=== PATIENT | male | born 1945 | race Caucasian/White ===

== ENCOUNTER 2018-10-12 14:07 | Inpatient (IN) | payer MEDICARE, MEDICAID ==
[~2018-10-12] VITALS: Ht 182.9 cm; Wt 58.1 kg
[2018-10-12] MEDS ORDERED: ONDANSETRON HCL/PF 4 MG/2 ML VIAL IVP ONE (14:30)
[2018-10-12] MEDS ORDERED: MORPHINE SULFATE INJ 2 MG/ML DISP.SYRIN IM ONE (14:30)
[2018-10-12] MEDS ORDERED: IV NS 0.9% 1,000 ML BAG IV ONE (14:30)
[2018-10-12 14:45] LABS: BASOPHILS # (AUTO) 0.1 /CMM (0.0-0.2); BASOPHILS % (AUTO) 0.7 % (0.0-2.0); HEMATOCRIT 22 % (39-51); HEMOGLOBIN 7.3 g/dL (13.5-17.5); LYMPHOCYTES # (AUTO) 0.2 /CMM (0.8-4.8); LYMPHOCYTES % (AUTO) 2.2 % (20.0-44.0); MEAN CORPUSCULAR HGB CONC 33 g/dl (31.0-36.0); MEAN CORPUSCULAR VOLUME 99 fL (80-96); MONOCYTES # (AUTO) 0.8 /CMM (0.1-1.30); MONOCYTES % (AUTO) 8.3 % (2.0-12.0); NEUTROPHILS # (AUTO) 8.2 /CMM (1.8-8.9); NEUTROPHILS % (AUTO) 88.8 % (43.0-81.0); PLATELET COUNT (AUTO) 196 /CMM (150-450); RED BLOOD CELL COUNT(AUTO) 2.22 MIL/uL (4.5-6.0); WHITE BLOOD COUNT (AUTO) 9.2 K/uL (4.3-11.0)
[2018-10-12] MEDS ORDERED: ONDANSETRON HCL/PF 4 MG/2 ML VIAL ONE (14:47)
[2018-10-12] MEDS ORDERED: MORPHINE SULFATE INJ 4 MG/ML DISP.SYRIN ONE (14:47)
[2018-10-12 14:54] LABS: CALCIUM, SERUM 8.1 mg/dL (8.5-10.1); CARBON DIOXIDE 22 mmol/L (21-32); CHLORIDE 106 mmol/L (98-107); CREATININE 1.4 mg/dL (0.6-1.3); GLUCOSE 78 mg/dL (74-106); POTASSIUM 4.5 mmol/L (3.5-5.1); SODIUM SERUM 137 mmol/L (136-145); UREA NITROGEN, BLOOD 28 mg/dL (7-18)
[2018-10-12 15:00] LABS: ALANINE AMINOTRANSFERASE 22 U/L (12-78); ALBUMIN 2.7 g/dL (3.4-5.0); ALKALINE PHOSPHATASE 65 U/L (46-116); ASPARTATE AMINOTRANSFERASE 48 U/L (15-37); BILIRUBIN,DIRECT 0.3 mg/dL (0.0-0.2); BILIRUBIN,TOTAL 0.9 mg/dL (0.2-1.0); TOTAL PROTEIN, SERUM 5.7 g/dL (6.4-8.2)
--- NOTE | 2018-10-12 15:27 | NUR ---
CALLED NURSING SUP. FOR TELE BED
--- NOTE | 2018-10-12 15:42 | NUR ---
DEVAN PAGED, BALE COVERER
[2018-10-12 15:48] LABS: APPEARANCE,URINE Clear (CLEAR); BILIRUBIN,URINE Negative (NEGATIVE); BLOOD, URINE Large Ery/uL (NEGATIVE); COLOR,URINE Yellow (YELLOW); KETONES,URINE 15 (NEGATIVE); LEUKOCYTE ESTERASE ,URINE Negative (NEGATIVE); NITRITE, URINE Negative (NEGATIVE); PROTEIN,URINE 30 mg/dl (NEGATIVE); UGLUCOSE Negative (NEGATIVE); UROBILINOGEN,URINE 0.2 EU/dL (0.2)
[2018-10-12] MEDS ORDERED: LENA5CAP PO (15:51)
[2018-10-12] MEDS ORDERED: AMLO2.5T4 PO (15:51)
[2018-10-12] MEDS ORDERED: DAPS25TA2 PO (15:51)
[2018-10-12] MEDS ORDERED: ASPI-1169 PO (15:51)
[2018-10-12] MEDS ORDERED: DEXA4TAB PO (15:51)
[2018-10-12 15:55] LABS: BACTERIA,URINE Rare /HPF (None Seen); RBC,URINE 21-50 /HPF (0-2); SQUAMOUS EPITHELIAL CELL,UR None Seen /HPF (None Seen); WBC,URINE NONE SEEN /HPF (0-3)
[2018-10-12] MEDS ORDERED: ALBUTEROL FS 2.5 MG/3 ML VIAL.NEB NEB ONE (16:30)
[2018-10-12] MEDS ORDERED: ACETAMINOPHEN 325 MG TABLET PO PRN (16:30)
[2018-10-12] MEDS ORDERED: IV NS 0.9% 1,000 ML IV SCH (16:30)
[2018-10-12] MEDS ORDERED: Z GUARD REMEDY 2 OZ OINT TP PRN (16:30)
[2018-10-12] MEDS ORDERED: MAGNESIUM HYDROXIDE 30 ML UDC PO PRN (16:30)
[2018-10-12] MEDS ORDERED: DEXAMETHASONE 4 MG TABLET PO SCH (16:30)
[2018-10-12] MEDS ORDERED: ONDANSETRON HCL/PF 4 MG/2 ML VIAL IVP PRN (16:30)
[2018-10-12] MEDS ORDERED: ZOLPIDEM TARTRATE 5 MG TABLET PO PRN (16:30)
[2018-10-12] MEDS ORDERED: MAG HYDROX/AL HYDROX/SIMETH 30 ML UDC PO PRN (16:30)
[2018-10-12] MEDS ORDERED: FUROSEMIDE 40 MG/4 ML VIAL ONE (16:49)
[2018-10-12 16:57] LABS: ABG BASE EXCESS -4.8 mmol/L; ABG OXYGEN SATURATION 81.8 % (92.0-98.5); ABG PCO2 32.3 mmHg (35.0-45.0); ABG PH 7.398 (7.350-7.450); AaDO2 196.1 mmHg; COHb 1.6 % (0.5-1.5); MetHb 0.1 % (0.0-1.5); O2Hb 80.4 % (94.0-97.0); SITE, ABG Right Radial; VENT MODE, BG SM 6L
[2018-10-12 17:00] VITALS: BP 155/83
[2018-10-12] MEDS ORDERED: FUROSEMIDE 40 MG/4 ML VIAL IV SCH (17:00)
--- NOTE | 2018-10-12 17:00 | NUR ---
RECEIVED PT AWAKE A/O X2-3 , ABLE TO PROVIDE HISTORY. PATIENTS SATURATION ON ROOM AIR 88 %. PATIENT ADM TO TELE , SINUS TACH 126, TEMPERATURE 102.1. GATE UNSTABLE, BED ALARM ACTIVATED. PT HAS IV ON LAC #20, FLUSHING WELL. SKIN INTACT , EXCEPT FEET DRYNESS AND DISCOLORATION ON THE KNEES, PICTURES ARE TAKEN AND PLACED IN THE CHART. SAFETY PRECAUTIONS IN PLACE, PATIENT ORIENTED TO ROOM AND UNIT. ADMITTING MD NOTIFIED. WILL F/U WITH ORDERS.
--- NOTE | 2018-10-12 17:10 | NUR ---
PATIENT ON O2 VIA SIMPLE MASK , SATURATION 93-94%
--- NOTE | 2018-10-12 17:15 | NUR ---
REPORT GIVEN TO ZOHRA MAO FOR NALINI, PT WILL BE TRANSPORTED TO 1ST FLOOR/TELE/KORIN VIA ACLS PROTOCOL
--- NOTE | 2018-10-12 19:30 | NUR ---
PATIENT IN BED WITH EYES CLOSED; EASILY AROUSABLE. AO X 3, ABLE TO MAKE NEEDS KNOWN. NO ACUTE DISTRESS NOTED. DENIES ANY PAIN AT THIS TIME. TELE READING SR/ST. IV SITE PATENT, INTACT; FLUSHED. SAFETY REMINDERS GIVEN. ON LOW BED WITH BILATERAL UPPER SIDE RAILS UP. CALL HITCHCOCK WITHIN EASY REACH. WILL CONTINUE TO MONITOR.
[2018-10-12 20:00] VITALS: BP 141/67
--- NOTE | 2018-10-12 21:00 | NUR ---
TEMP 101.8 RELAYED TO [facility]; WITH ORDER TO RE-CHECK IN 4 HOURS, DON'T GIVE TYLENOL AT THIS TIME. WILL CONTINUE TO MONITOR PATIENT. Addendum: 10/13/18 at 0733 by BIBI LOZANO RN COOLING MEASURES APPLIED.
[2018-10-13] VITALS (7 sets, daily range): BP systolic 100–136; BP diastolic 56–88
--- NOTE | 2018-10-13 04:00 | NUR ---
TROP 0.413 RELAYED TO [facility]; NO NEW ORDERS AT THIS TIME. PATIENT WITH NO C/O PAIN. TELE READING ST. AFEBRILE AT THIS TIME. WILL CONTINUE TO MONITOR.
--- NOTE | 2018-10-13 06:30 | NUR ---
PATIENT ASLEEP, EASILY AROUSABLE. RESPIRATIONS EVEN. NO SIGNS OF PAIN NOTED. AFEBRILE. NEEDS ATTENDED. KEPT CLEAN, DRY, AND COMFORTABLE. SAFETY PRECAUTIONS AND COMFORT MEASURES IN PLACE. WILL GIVE REPORT TO DAY SHIFT FOR CONTINUITY OF CARE.
--- NOTE | 2018-10-13 07:10 | NUR ---
MICROSOFT INFRASTRUCTURE CONSULTANT INITIAL NOTES PATIENT IN BED WITH EYES CLOSED; EASILY AROUSABLE. AOX3, ABLE TO MAKE NEEDS KNOWN. TELE READING ST WITH HR 140. ON OXYGEN 6L, SATURATION 85. RT AT BEDSIDE. IV SITE PATENT, INTACT; FLUSHED. SAFETY REMINDERS GIVEN. ON LOW BED WITH BILATERAL UPPER SIDE RAILS UP. CALL HITCHCOCK WITHIN EASY REACH. WILL CONTINUE TO MONITOR.
[2018-10-13 07:16] LABS: BASOPHILS % (AUTO) 0.5 % (0.0-2.0); HEMATOCRIT 24 % (39-51); HEMOGLOBIN 7.9 g/dL (13.5-17.5); LYMPHOCYTES # (AUTO) 0.2 /CMM (0.8-4.8); LYMPHOCYTES % (AUTO) 3.3 % (20.0-44.0); MEAN CORPUSCULAR HGB CONC 33 g/dl (31.0-36.0); MEAN CORPUSCULAR VOLUME 99 fL (80-96); MONOCYTES # (AUTO) 0.3 /CMM (0.1-1.30); MONOCYTES % (AUTO) 4.1 % (2.0-12.0); NEUTROPHILS # (AUTO) 5.7 /CMM (1.8-8.9); NEUTROPHILS % (AUTO) 92.1 % (43.0-81.0); PLATELET COUNT (AUTO) 179 /CMM (150-450); RED BLOOD CELL COUNT(AUTO) 2.44 MIL/uL (4.5-6.0); WHITE BLOOD COUNT (AUTO) 6.2 K/uL (4.3-11.0)
[2018-10-13 07:29] LABS: CALCIUM, SERUM 7.8 mg/dL (8.5-10.1); CARBON DIOXIDE 22 mmol/L (21-32); CHLORIDE 107 mmol/L (98-107); CREATININE 1.7 mg/dL (0.6-1.3); GLUCOSE 70 mg/dL (74-106); PHOSPHORUS 3.6 mg/dL (2.5-4.9); POTASSIUM 4.3 mmol/L (3.5-5.1); SODIUM SERUM 144 mmol/L (136-145); UREA NITROGEN, BLOOD 35 mg/dL (7-18)
[2018-10-13 07:31] LABS: CHOLESTEROL 109 mg/dL (<200); HDL CHOLESTEROL 68 mg/dL (40-60); LDL 37 mg/dL (0-99); TRIGLYCERIDES 97 mg/dL (30-150)
--- NOTE | 2018-10-13 07:45 | NUR ---
PCB DESIGNER NOTES RT AT BEDSIDE AND PLACED NONREBREATHER MASK 100, PATIENT'S SATURATION NOW 94%. HEART RATE SINUS TACHY WITH HR 145. TEMP 101, RR 20, BP 128/56. WILL NOTIFY . Addendum: 10/13/18 at 0815 by BRIGITTE SOFIA RN COOLING MEASURES GIVEN. WILL CONTINUE TO MONITOR.
[2018-10-13 07:46] LABS: MAGNESIUM 1.2 mg/dL (1.8-2.4)
[2018-10-13] MEDS: AMLODIPINE BESYLATE 2.5 MG TABLET PO SCH (09:41)
[2018-10-13] MEDS: ASPIRIN 81 MG TAB.CHEW PO SCH (09:41)
--- NOTE | 2018-10-13 10:00 | NUR ---
TOOL DISTRIBUTOR NOTES PATIENT TEMP 102.4, GAVE PATIENT A COLD BATH WITH JANE AMAYA, COOLING BLANKET IN PLACE. WILL CONTINUE TO MONITOR PT.
--- NOTE | 2018-10-13 10:43 | NUR ---
TEL Nurse , left message ,< answering service >to re; temp of 102.6 axillary tylenol 650mg po given and waiting for retruning call back
[2018-10-13] MEDS: Magnesium 1GM/D5W 100ML PREMIX 100 ML IV SCH ×4 (12:46→15:53)
[2018-10-13] MEDS ORDERED: DEXAMETHASONE 4 MG TABLET PO SCH (13:00)
[2018-10-13] MEDS ORDERED: FEE PK DOSING 1 MIN EA MC ONE (13:20)
[2018-10-13] MEDS ORDERED: IV NS 0.9% 1,000 ML BAG IV PRN (13:30)
[2018-10-13] MEDS: VANCOMYCIN 0.75 GM in IV D5W 250 ML IV SCH (14:35)
[2018-10-13] MEDS ORDERED: PIPERACILLIN /TAZOBACTAM 3.375 G in IV D5W 50 ML IV ONE (15:00)
[2018-10-13] MEDS: IV NS 0.9% 1,000 ML IV PRN (15:02)
--- NOTE | 2018-10-13 19:15 | NUR ---
DECORATOR STORE NOTE PATIENT PRESENTS AOX3, RESTING WITH HOB ELEVATED ON 10L MASK O2 SAT 97%, NO S/SX OF CARDIAC OR RESPIRATORY DISTRESS NOTED, ON TELE ST, SKIN KEPT CLEAN AND DRY, RAC #20G IV PATENT FLUSHING WELL WITH NS @ 75 ML/HR, SAFETY MAINTAINED AT ALL TIMES, BED IN LOW LOCKED POSITION, CALL LIGHT WITHIN REACH WILL CONTINUE TO MONITOR FOR ANY CHANGES.
--- NOTE | 2018-10-13 19:20 | NUR ---
RUNNER MAN CLOSING NOTES PATIENT SLEEPING IN BED, BUT EASY TO AROUSE. AOX3, ABLE TO MAKE NEEDS KNOWN. TELE READING ST WITH HR 90S. ON OXYGEN 10L, VIA MASK. OXYGEN SATURATION 96%. NO SOB NOTED. IV SITE PATENT, INTACT, NS RUNNING AT 75ML/HR. SAFETY REMINDERS GIVEN. ON LOW BED WITH BILATERAL UPPER SIDE RAILS UP. CALL HITCHCOCK WITHIN EASY REACH. ALL MD ORDERS ATTENDED. ALL NEEDS MET. ENDORSED TO FRENCH BINDER NURSE FOR NALINI.
--- NOTE | 2018-10-13 22:10 | NUR ---
EVENT ATTENDANT NOTE RN DECREASED O2 TO 6L VIA MASK PT O2 SAT 98% DENIES ANY RESPIRATORY DISTRESS, WILL CONTINUE TO MONITOR.
[2018-10-13] MEDS: PIPERACILLIN /TAZOBACTAM 3.375 G in IV D5W 100 ML IV SCH (23:02)
[2018-10-14] VITALS: BP 127/76
--- NOTE | 2018-10-14 02:57 | NUR ---
ADOBE MAKER NOTE RN DECREASED O2 TO 4L VIA MASK PT O2 SAT 98% DENIES ANY RESPIRATORY DISTRESS, WILL CONTINUE TO MONITOR.
[2018-10-14 04:00] VITALS: BP 116/71
[2018-10-14 05:39] LABS: BASOPHILS % (AUTO) 0.1 % (0.0-2.0); EOSINOPHILS % (AUTO) 0.1 % (0.0-6.0); HEMATOCRIT 25 % (39-51); HEMOGLOBIN 8.1 g/dL (13.5-17.5); LYMPHOCYTES # (AUTO) 0.2 /CMM (0.8-4.8); LYMPHOCYTES % (AUTO) 1.2 % (20.0-44.0); MEAN CORPUSCULAR HGB CONC 33 g/dl (31.0-36.0); MEAN CORPUSCULAR VOLUME 98 fL (80-96); MONOCYTES # (AUTO) 0.3 /CMM (0.1-1.30); MONOCYTES % (AUTO) 1.8 % (2.0-12.0); NEUTROPHILS % (AUTO) 96.8 % (43.0-81.0); PLATELET COUNT (AUTO) 157 /CMM (150-450); RED BLOOD CELL COUNT(AUTO) 2.51 MIL/uL (4.5-6.0); WHITE BLOOD COUNT (AUTO) 15.5 K/uL (4.3-11.0)
[2018-10-14 05:58] LABS: ALANINE AMINOTRANSFERASE 28 U/L (12-78); ALBUMIN 1.8 g/dL (3.4-5.0); ALKALINE PHOSPHATASE 34 U/L (46-116); ASPARTATE AMINOTRANSFERASE 95 U/L (15-37); BILIRUBIN,TOTAL 0.9 mg/dL (0.2-1.0); CALCIUM, SERUM 7.4 mg/dL (8.5-10.1); CARBON DIOXIDE 26 mmol/L (21-32); CHLORIDE 107 mmol/L (98-107); CREATININE 1.7 mg/dL (0.6-1.3); GLUCOSE 131 mg/dL (74-106); MAGNESIUM 2.2 mg/dL (1.8-2.4); PHOSPHORUS 3.8 mg/dL (2.5-4.9); POTASSIUM 4.4 mmol/L (3.5-5.1); SODIUM SERUM 141 mmol/L (136-145); TOTAL PROTEIN, SERUM 5.2 g/dL (6.4-8.2); UREA NITROGEN, BLOOD 41 mg/dL (7-18)
[2018-10-14 06:52] LABS: CREATINE KINASE, TOTAL 1831 U/L (39-308)
--- NOTE | 2018-10-14 07:00 | NUR ---
AUTO HAULAWAY DRIVER OPENING NOTES PATIENT SLEEPING IN BED, BUT EASY TO AROUSE. AOX3, ABLE TO MAKE NEEDS KNOWN. TELE READING SR WITH HR 85. ON OXYGEN 4L, VIA MASK. OXYGEN SATURATION 97%. NO SOB NOTED. IV SITE PATENT, INTACT, NS RUNNING AT 75ML/HR. SAFETY REMINDERS GIVEN. ON LOW BED WITH BILATERAL UPPER SIDE RAILS UP. CALL HITCHCOCK WITHIN EASY REACH. WILL CONTINUE TO MONITOR THROUGHOUT SHIFT.
--- NOTE | 2018-10-14 07:10 | NUR ---
RN M/S NOTE LABETALOL NOT UNAVAILABLE IN FACILITY WILL FOLLOW UP WITH ONCALL FOR CHANGE IN MED ORDER, PT IN BED SAFETY MAINTAINED DENIES ANY S/SX OF CARDIAC DISTRESS, REPORT TO CHARGE NURSE SOON WHO WILL FOLLOW UP ON ORDERS, BP BEING MONITORED CLOSELY.
[2018-10-14 08:00] VITALS: BP 125/74
[2018-10-14] MEDS: PIPERACILLIN /TAZOBACTAM 3.375 G in IV D5W 100 ML IV SCH ×3 (08:00→22:00)
[2018-10-14] MEDS: VANCOMYCIN 0.75 GM in IV D5W 250 ML IV SCH (08:52)
[2018-10-14] MEDS: ASPIRIN 81 MG TAB.CHEW PO SCH (09:05)
[2018-10-14] MEDS: AMLODIPINE BESYLATE 2.5 MG TABLET PO SCH (09:05)
[2018-10-14 12:00] VITALS: BP 118/65
[2018-10-14 16:00] VITALS: BP 118/71
--- NOTE | 2018-10-14 16:20 | NUR ---
FACILITY OPERATIONS MANAGER NOTES SPUTUM CULTURE COLLECTED. CALLED LAB FOR MANAGER ELIGIBILITY.
[2018-10-14] MEDS: ENSURE ENLIVE CHOC 237 ML CAN PO SCH (18:19)
[2018-10-14] MEDS: IV NS 0.9% 1,000 ML IV PRN (18:23)
--- NOTE | 2018-10-14 19:00 | NUR ---
GRINDER MILL OPERATOR CLOSING NOTES NO ACUTE CHANGES THROUGHOUT SHIFT. ALL NEEDS MED. ALL MD ORDERS ATTENDED. SAFETY MEASURES WAS IN PLACE THROUGHOUT SHIFT. ENDORSED TO SYSTEMS TEST ENGINEER NURSE FOR NALINI.
--- NOTE | 2018-10-14 19:20 | NUR ---
CIGARETTE ROLLER NOTE PATIENT PRESENTS AOX3, RESTING WITH HOB ELEVATED ON 4L MASK O2 SAT 98%, NO S/SX OF CARDIAC OR RESPIRATORY DISTRESS NOTED, ON TELE SR, SKIN KEPT CLEAN AND DRY, RAC #20G IV PATENT FLUSHING WELL WITH NS @ 75 ML/HR, SAFETY MAINTAINED AT ALL TIMES, BED IN LOW LOCKED POSITION, CALL LIGHT WITHIN REACH WILL CONTINUE TO MONITOR FOR ANY CHANGES.
[2018-10-14 20:00] VITALS: BP 123/67
[2018-10-14] MEDS: ATORVASTATIN 10 MG TABLET PO SCH (21:47)
[2018-10-15] VITALS (11 sets, daily range): BP systolic 103–160; BP diastolic 51–90
[2018-10-15] MEDS: VANCOMYCIN 0.75 GM in IV D5W 250 ML IV SCH ×2 (01:56→20:50)
--- NOTE | 2018-10-15 07:00 | NUR ---
STOCK BLENDER OPENING NOTES PATIENT SLEEPING IN BED, BUT EASY TO AROUSE. AOX3, ABLE TO MAKE NEEDS KNOWN. TELE READING SR WITH HR 90. ON OXYGEN 4L, VIA MASK. NO SOB NOTED. IV SITE PATENT, INTACT, NS RUNNING AT 75ML/HR. SAFETY REMINDERS GIVEN. ON LOW BED WITH BILATERAL UPPER SIDE RAILS UP. CALL HITCHCOCK WITHIN EASY REACH. WILL CONTINUE TO MONITOR THROUGHOUT SHIFT.
[2018-10-15 07:42] LABS: ALANINE AMINOTRANSFERASE 32 U/L (12-78); ALBUMIN 1.5 g/dL (3.4-5.0); ALKALINE PHOSPHATASE 59 U/L (46-116); ASPARTATE AMINOTRANSFERASE 81 U/L (15-37); BILIRUBIN,TOTAL 0.7 mg/dL (0.2-1.0); CALCIUM, SERUM 7.3 mg/dL (8.5-10.1); CARBON DIOXIDE 24 mmol/L (21-32); CHLORIDE 107 mmol/L (98-107); CREATININE 1.6 mg/dL (0.6-1.3); GLUCOSE 110 mg/dL (74-106); PHOSPHORUS 2.9 mg/dL (2.5-4.9); POTASSIUM 4.3 mmol/L (3.5-5.1); SODIUM SERUM 142 mmol/L (136-145); TOTAL PROTEIN, SERUM 4.9 g/dL (6.4-8.2); UREA NITROGEN, BLOOD 52 mg/dL (7-18)
[2018-10-15] MEDS: PIPERACILLIN /TAZOBACTAM 3.375 G in IV D5W 100 ML IV SCH ×3 (07:59→23:05)
[2018-10-15 08:18] LABS: BASOPHILS % (AUTO) 0.3 % (0.0-2.0); LYMPHOCYTES # (AUTO) 0.2 /CMM (0.8-4.8); LYMPHOCYTES % (AUTO) 1.5 % (20.0-44.0); MEAN CORPUSCULAR HGB CONC 33 g/dl (31.0-36.0); MEAN CORPUSCULAR VOLUME 98 fL (80-96); MONOCYTES # (AUTO) 0.4 /CMM (0.1-1.30); MONOCYTES % (AUTO) 2.4 % (2.0-12.0); NEUTROPHILS # (AUTO) 14.7 /CMM (1.8-8.9); NEUTROPHILS % (AUTO) 95.8 % (43.0-81.0); PLATELET COUNT (AUTO) 131 /CMM (150-450); WHITE BLOOD COUNT (AUTO) 15.4 K/uL (4.3-11.0)
[2018-10-15 08:24] LABS: RED BLOOD CELL COUNT(AUTO) 1.98 MIL/uL (4.5-6.0)
[2018-10-15 08:26] LABS: HEMATOCRIT 19 % (39-51); HEMOGLOBIN 6.5 g/dL (13.5-17.5)
[2018-10-15] MEDS: ENSURE ENLIVE CHOC 237 ML CAN PO SCH ×3 (09:34→18:00)
[2018-10-15] MEDS: ASPIRIN 81 MG TAB.CHEW PO SCH (09:48)
[2018-10-15] MEDS: PANTOPRAZOLE 40 MG TABLET.DR PO SCH ×2 (09:48→21:00)
[2018-10-15] MEDS: AMLODIPINE BESYLATE 2.5 MG TABLET PO SCH (09:48)
[2018-10-15] MEDS: IV NS 0.9% 1,000 ML IV PRN (10:04)
[2018-10-15 10:34] LABS: BAND % (MANUAL) 3 % (0.0-5.0); LYMPHOCYTES % (MANUAL) 1 % (16-48); NEUTROPHILS % (MANUAL) 96 (42-76)
[2018-10-15 11:10] LABS: *SPE A/G RATIO 0.9 (0.7-1.7); *SPE ALBUMIN 2.1 g/dL (2.9-4.4); *SPE ALPHA-1-GLOBULIN 0.4 g/dL (0.0-0.4); *SPE ALPHA-2-GLOBULIN 0.7 g/dL (0.4-1.0); *SPE BETA GLOBULIN 0.6 g/dL (0.7-1.3); *SPE GLOBULIN, TOTAL 2.3 g/dL (2.2-3.9); *SPE M-SPIKE 0.1 g/dL (Not Observed); *SPEGAMMA GLOBULIN 0.6 g/dL (0.4-1.8)
[2018-10-15 11:29] LABS: BASOPHILS % (AUTO) 0.1 % (0.0-2.0); HEMATOCRIT 21 % (39-51); LYMPHOCYTES # (AUTO) 0.1 /CMM (0.8-4.8); LYMPHOCYTES % (AUTO) 0.8 % (20.0-44.0); MEAN CORPUSCULAR HGB CONC 32 g/dl (31.0-36.0); MEAN CORPUSCULAR VOLUME 99 fL (80-96); MONOCYTES # (AUTO) 0.4 /CMM (0.1-1.30); MONOCYTES % (AUTO) 2.3 % (2.0-12.0); NEUTROPHILS # (AUTO) 17.4 /CMM (1.8-8.9); NEUTROPHILS % (AUTO) 96.8 % (43.0-81.0); PLATELET COUNT (AUTO) 141 /CMM (150-450); RED BLOOD CELL COUNT(AUTO) 2.11 MIL/uL (4.5-6.0)
[2018-10-15 11:39] LABS: HEMOGLOBIN 6.8 g/dL (13.5-17.5)
[2018-10-15 11:40] LABS: IRON, SERUM 9 ug/dl (50-175); TOTAL IRON BINDING CAPACITY 118 ug/dl (250-450)
[2018-10-15 11:51] LABS: FERRITIN 673 ng/mL (8-388)
--- NOTE | 2018-10-15 12:42 | NUR ---
Social service consult requested by MD Olguin for homelessness. Pt is a 73 year old presented self to the ED for dizziness and back pain. Pt is Aox4, pt is lying flat in bed with oxygen mask. Pt reports he has been homeless for many years could not verify how many. Pt could not indicate which areas he resides around. Pt reports no alcohol or drug use, pt reports no mental health diagnosis. Pt states he receives SSI ($1200). Sw offered pt resources for homeless shelters, homeless directory, healthcare, substance abuse and mental heal resources pts accepted all resources. Agustina discussed with possible discharge with RN, RN informed pt is not to be discharge today due to current health state. SW will provide homeless waiver and homeless checklist prior to discharge. Inseam Trimmer social scientist will leave medical technician assistant email regarding case status.
[2018-10-15 14:15] LABS: BAND % (MANUAL) 7 % (0.0-5.0); LYMPHOCYTES % (MANUAL) 1 % (16-48); MONOCYTES % (MANUAL) 1 % (0-11.0); NEUTROPHILS % (MANUAL) 91 (42-76)
[2018-10-15 17:03] LABS: OCCULT BLOOD STOOL NEGATIVE (NEGATIVE)
--- NOTE | 2018-10-15 19:00 | NUR ---
MS RN CLOSING NOTES PT ENDORSED TO PM NURSE FOR NALINI. PT TOLERATED BLOOD TRANSFUSION WELL. IS RESTING IN BED, WITH O2 SIMPLE MASK. VS WNL. BED IN LOCKED/LOWEST POSITION. CALL LIGHT IN REACH.
--- NOTE | 2018-10-15 20:00 | NUR ---
MS/RN OPENING NOTES PATIENT IN BED, RESTING COMFORTABLY IN BED, ON SIMPLE MASK AT 4LITER AT 99 % SATURATION WITH PULSE RATE OF 1220REQUIRE MONITORING PATIETN REMOVED MASK AT TIMES. INSTRUCTED NOT TO REMOVE IT.SKIN WARM TO TOUCH, ON FLEXIXIL TWITH BLACK TARRY STOOL. ONE PRNBC OF BLOOD ADMINISTERED BY AM RN TO MONITOR..
[2018-10-15] MEDS: ATORVASTATIN 10 MG TABLET PO SCH (21:00)
[2018-10-15 21:10] LABS: HEMOGLOBIN 7.5 g/dL (13.5-17.5)
[2018-10-16] VITALS: BP 160/90
[2018-10-16 04:00] VITALS: BP 147/86
[2018-10-16] MEDS: PIPERACILLIN /TAZOBACTAM 3.375 G in IV D5W 100 ML IV SCH ×3 (06:12→22:49)
--- NOTE | 2018-10-16 06:46 | NUR ---
120-1 MS/RN NOTES PATIEN, AWAKE, ABLE TO SLEEP INTERMITENTLY, SKIN WARM TO TOUCH, ON SIMPLE MASK, AT 4L, REPOSIOTNED FOR COMFORT. BED LOCKEC, CALL LIGHTS WITHIN REACH.
[2018-10-16 07:18] LABS: BASOPHILS % (AUTO) 0.1 % (0.0-2.0); HEMATOCRIT 23 % (39-51); HEMOGLOBIN 7.7 g/dL (13.5-17.5); LYMPHOCYTES # (AUTO) 0.3 /CMM (0.8-4.8); LYMPHOCYTES % (AUTO) 2.2 % (20.0-44.0); MEAN CORPUSCULAR HGB CONC 34 g/dl (31.0-36.0); MEAN CORPUSCULAR VOLUME 95 fL (80-96); MONOCYTES # (AUTO) 0.7 /CMM (0.1-1.30); MONOCYTES % (AUTO) 4.8 % (2.0-12.0); NEUTROPHILS # (AUTO) 13.9 /CMM (1.8-8.9); NEUTROPHILS % (AUTO) 92.9 % (43.0-81.0); PLATELET COUNT (AUTO) 135 /CMM (150-450); RED BLOOD CELL COUNT(AUTO) 2.41 MIL/uL (4.5-6.0)
[2018-10-16 07:33] LABS: ALANINE AMINOTRANSFERASE 47 U/L (12-78); ALBUMIN 1.7 g/dL (3.4-5.0); ALKALINE PHOSPHATASE 73 U/L (46-116); ASPARTATE AMINOTRANSFERASE 74 U/L (15-37); BILIRUBIN,TOTAL 0.5 mg/dL (0.2-1.0); CARBON DIOXIDE 25 mmol/L (21-32); CHLORIDE 108 mmol/L (98-107); CREATININE 1.6 mg/dL (0.6-1.3); GLUCOSE 106 mg/dL (74-106); MAGNESIUM 1.6 mg/dL (1.8-2.4); PHOSPHORUS 2.7 mg/dL (2.5-4.9); SODIUM SERUM 141 mmol/L (136-145); TOTAL PROTEIN, SERUM 5.3 g/dL (6.4-8.2); UREA NITROGEN, BLOOD 48 mg/dL (7-18)
[2018-10-16 08:00] VITALS: BP_SYST 146; BP_SYST 149; BP_DIAS 64; BP_DIAS 83
[2018-10-16] MEDS: Magnesium 1GM/D5W 100ML PREMIX 100 ML IV SCH ×2 (08:00→09:00)
[2018-10-16] MEDS: ENSURE ENLIVE CHOC 237 ML CAN PO SCH ×3 (08:00→17:00)
[2018-10-16] MEDS: AMLODIPINE BESYLATE 2.5 MG TABLET PO SCH (09:00)
[2018-10-16] MEDS: PANTOPRAZOLE 40 MG TABLET.DR PO SCH ×2 (09:00→21:10)
--- NOTE | 2018-10-16 09:55 | NUR ---
WOUND CARE CONSULT: PT PRESENTS WITH SACRAL SCARRING, DRY SCALY SKIN TO LOWER LEGS AND FEET, AND URINARY INCONTINENCE, PRESENT ON ADMISSION. RECTAL TUBE IN PLACE. RECOMMENDATIONS MADE FOR SKIN PROTECTION. DISCUSSED WITH NURSING STAFF. PT ABLE TO ASSIST WITH TURNING AND REPOSITIONING IN BED. PT IS THIN AND BONY. WILL SEE PRN. CURRENT MAYRA SCORE IS 14. IN AGREEMENT WITH PLAN OF CARE. Addendum: 10/16/18 at 0957 by RON BRYAN WNDNU Amended: Links added.
[2018-10-16] MEDS ORDERED: MINERAL OIL/PETROLATUM,WHITE 120 GM JAR TP PRN (10:00)
[2018-10-16] MEDS: HYDROCODONE/APAP 5/325MG 1 EACH TABLET PO PRN ×2 (10:18→16:19)
[2018-10-16 12:00] VITALS: BP 149/64
[2018-10-16] MEDS: VANCOMYCIN 0.75 GM in IV D5W 250 ML IV SCH (15:23)
[2018-10-16 18:54] VITALS: BP 149/64
[2018-10-16 20:00] VITALS: BP 131/76
[2018-10-16] MEDS: ATORVASTATIN 10 MG TABLET PO SCH (21:10)
[2018-10-17 04:00] VITALS: BP 137/76
--- NOTE | 2018-10-17 06:17 | NUR ---
MS RN NOTES AWAKE & RESPONSIVE. NOT IN ANY DISTRESS. NO SOB NOTED. DENIES ANY PAIN OR DISCOMFORT AT THIS TIME. WITH IV-HL PATENT & INTACT. WITH CONDOM CATH DRAINING YELLOWISH OUTPUT MODERATE IN AMOUNT. WITH FLEXISEAL DRAINING BROWNISH OUTPUT MODERATE IN AMOUNT. AM CARE DONE. MONITORED ACCORDINGLY. CALL LIGHT WITHIN REACH. BED IN LOWEST POSITION. SR UP X 3 WITH BED ALARM ON FOR SAFETY. WILL ENDORSE TO NEXT SHIFT.
[2018-10-17 07:19] LABS: BASOPHILS % (AUTO) 0.1 % (0.0-2.0); EOSINOPHILS % (AUTO) 0.2 % (0.0-6.0); HEMATOCRIT 26 % (39-51); HEMOGLOBIN 8.8 g/dL (13.5-17.5); LYMPHOCYTES # (AUTO) 0.4 /CMM (0.8-4.8); LYMPHOCYTES % (AUTO) 7.2 % (20.0-44.0); MEAN CORPUSCULAR HGB CONC 34 g/dl (31.0-36.0); MEAN CORPUSCULAR VOLUME 95 fL (80-96); MONOCYTES # (AUTO) 0.7 /CMM (0.1-1.30); MONOCYTES % (AUTO) 13.8 % (2.0-12.0); NEUTROPHILS # (AUTO) 3.9 /CMM (1.8-8.9); NEUTROPHILS % (AUTO) 78.7 % (43.0-81.0); PLATELET COUNT (AUTO) 148 /CMM (150-450); RED BLOOD CELL COUNT(AUTO) 2.76 MIL/uL (4.5-6.0)
[2018-10-17 07:28] LABS: ALANINE AMINOTRANSFERASE 75 U/L (12-78); ALBUMIN 1.9 g/dL (3.4-5.0); ALKALINE PHOSPHATASE 76 U/L (46-116); ASPARTATE AMINOTRANSFERASE 91 U/L (15-37); BILIRUBIN,TOTAL 0.8 mg/dL (0.2-1.0); CARBON DIOXIDE 28 mmol/L (21-32); CHLORIDE 102 mmol/L (98-107); CREATININE 1.5 mg/dL (0.6-1.3); GLUCOSE 83 mg/dL (74-106); MAGNESIUM 1.4 mg/dL (1.8-2.4); PHOSPHORUS 3.2 mg/dL (2.5-4.9); POTASSIUM 4.1 mmol/L (3.5-5.1); SODIUM SERUM 138 mmol/L (136-145); TOTAL PROTEIN, SERUM 5.8 g/dL (6.4-8.2); UREA NITROGEN, BLOOD 38 mg/dL (7-18)
[2018-10-17] MEDS: PIPERACILLIN /TAZOBACTAM 3.375 G in IV D5W 100 ML IV SCH ×2 (07:51→15:25)
[2018-10-17 08:00] VITALS: BP_SYST 139; BP_SYST 145; BP_DIAS 74; BP_DIAS 86
[2018-10-17] MEDS: ENSURE ENLIVE CHOC 237 ML CAN PO SCH ×3 (08:00→17:35)
[2018-10-17] MEDS: PANTOPRAZOLE 40 MG TABLET.DR PO SCH (09:36)
[2018-10-17] MEDS: AMLODIPINE BESYLATE 2.5 MG TABLET PO SCH (09:36)
[2018-10-17] MEDS: HYDROCODONE/APAP 5/325MG 1 EACH TABLET PO PRN ×2 (09:37→18:03)
[2018-10-17] MEDS: VANCOMYCIN 0.75 GM in IV D5W 250 ML IV SCH (09:54)
[2018-10-17] MEDS: Magnesium 1GM/D5W 100ML PREMIX 100 ML IV SCH ×2 (11:44→12:18)
[2018-10-17 12:00] VITALS: BP_SYST 129; BP_SYST 139; BP_DIAS 83; BP_DIAS 86
[2018-10-17 16:00] VITALS: BP 129/83
[2018-10-17 16:34] VITALS: BP 139/86
== END 2018-10-17 18:40 | DRG 871 ==
LOC: ER 14:09 → TELE1 16:26 → MEDSG1 10-15 15:35
PROVIDERS: ADMIT Family Medicine; ATTEND Family Medicine
PROC: 30233N1 Transfusion of Nonautologous Red Blood Cells into Peripheral Vein, Percutaneous Approach (ICD-10-PCS; principal; 2018-10-15)
DX: A41.9 Sepsis, unspecified organism (principal); I21.A1 Myocardial infarction type 2; I50.31 Acute diastolic (congestive) heart failure; J96.01 Acute respiratory failure with hypoxia; N17.0 Acute kidney failure with tubular necrosis; J15.9 Unspecified bacterial pneumonia; I13.0 Hypertensive heart and chronic kidney disease with heart failure and stage 1 through stage 4 chronic kidney disease, or unspecified chronic kidney disease; C90.00 Multiple myeloma not having achieved remission; E44.1 Mild protein-calorie malnutrition; N18.9 Chronic kidney disease, unspecified; Z79.82 Long term (current) use of aspirin; Z79.899 Other long term (current) drug therapy; E83.51 Hypocalcemia; E83.42 Hypomagnesemia; E86.1 Hypovolemia; Z59.0 Homelessness; Z66 Do not resuscitate; D63.1 Anemia in chronic kidney disease; Z79.52 Long term (current) use of systemic steroids; D89.9 Disorder involving the immune mechanism, unspecified; T38.0X5A Adverse effect of glucocorticoids and synthetic analogues, initial encounter; Y92.009 Unspecified place in unspecified non-institutional (private) residence as the place of occurrence of the external cause
CPT/HCPCS: 36415; 36600; 70450-TC; 71045-TC; 72131-TC; 76770-TC; 80048-TC; 80053-TC; 80061-TC; 80076-TC; 80202-TC; 81000-TC; 82272-TC; 82550-TC; 82728-TC; 82803-TC; 83540-TC; 83735-TC; 83880; 83970; 84100-TC; 84155; 84165; 84443-TC; 84484-TC; 85025-TC; 85027-TC; 85730-TC; 86850-TC; 86921-TC; 87040-TC; 87070-TC; 87081-TC; 93307-TC; A4349; G0378; J1940; J2270; J2405; J2543; J3370; J3475; J3490; J7030; J7040; J7050; J7060; J8540; P9016-BL

== ENCOUNTER 2020-08-26 00:57 | Inpatient (IN) | payer MEDICARE, OTHER ==
[~2020-08-26] VITALS: Ht 180.3 cm; Wt 51.7 kg
[~2020-08-26 00:57] MED LIST: AMLO2.5T4 PO; ASPI-1169 PO; DAPS25TA2 PO; DEXA4TAB PO; LENA5CAP PO
[2020-08-26] MEDS ORDERED: ASPIRIN 325 MG TABLET ONE (01:09)
--- NOTE | 2020-08-26 01:11 | NUR ---
PATIENT CAME TO ER BED 7 BIBRA C/O SOB FROM [facility]. PATIENT IS AAOX3. CURRENTLY IS BREATHING EVENLY AND UNLABORED ON ROOM AIR AT 100%. PATIENT IS NOT IN ANY DISTRESS. CONNECTED TO THE PIT MANAGER.
--- NOTE | 2020-08-26 01:15 | NUR ---
BLOOD COLLECTED AND SENT TO THE LAB.
[2020-08-26] MEDS ORDERED: ASPIRIN 325 MG TABLET PO ONE (01:30)
[2020-08-26 01:31] LABS: BASOPHILS % (AUTO) 0.5 % (0.0-2.0); EOSINOPHILS % (AUTO) 1.3 % (0.0-6.0); HEMATOCRIT 32 % (39-51); HEMOGLOBIN 10.7 g/dL (13.5-17.5); LYMPHOCYTES # (AUTO) 0.3 /CMM (0.8-4.8); LYMPHOCYTES % (AUTO) 2.7 % (20.0-44.0); MEAN CORPUSCULAR HGB CONC 33 g/dl (31.0-36.0); MEAN CORPUSCULAR VOLUME 89 fL (80-96); MONOCYTES # (AUTO) 0.4 /CMM (0.1-1.30); MONOCYTES % (AUTO) 4.2 % (2.0-12.0); NEUTROPHILS # (AUTO) 8.5 /CMM (1.8-8.9); NEUTROPHILS % (AUTO) 91.3 % (43.0-81.0); PLATELET COUNT (AUTO) 331 /CMM (150-450); RED BLOOD CELL COUNT(AUTO) 3.62 MIL/uL (4.5-6.0); WHITE BLOOD COUNT (AUTO) 9.3 K/uL (4.3-11.0)
--- NOTE | 2020-08-26 01:33 | NUR ---
HARTMAN VIRUS TEST SAMPLE COLLECTED AND SENT TO THE LAB.
[2020-08-26 01:39] LABS: CALCIUM, SERUM 7.9 mg/dL (8.5-10.1); CARBON DIOXIDE 22 mmol/L (21-32); CHLORIDE 103 mmol/L (98-107); GLUCOSE 131 mg/dL (74-106); POTASSIUM 3.7 mmol/L (3.5-5.1); SODIUM SERUM 138 mmol/L (136-145); UREA NITROGEN, BLOOD 14 mg/dL (7-18)
[2020-08-26 01:51] LABS: ALANINE AMINOTRANSFERASE 18 U/L (12-78); ALBUMIN 2.8 g/dL (3.4-5.0); ALKALINE PHOSPHATASE 81 U/L (46-116); ASPARTATE AMINOTRANSFERASE 30 U/L (15-37); B-TYPE NATRIURETIC PEPTIDE 3117 PG/ML (0-125); BILIRUBIN,DIRECT 0.2 mg/dL (0.0-0.2); BILIRUBIN,TOTAL 0.4 mg/dL (0.2-1.0); TOTAL PROTEIN, SERUM 7.1 g/dL (6.4-8.2)
--- NOTE | 2020-08-26 02:09 | NUR ---
LAB CALLED REGARDING POSITIVE COVID RESULT.
--- NOTE | 2020-08-26 05:30 | NUR ---
PATIENT IS SLEEPING. EASILY AROUSABLE. BREATHING EVENLY AND UNLABORED ON ROOM AIR AT 100%. PATIENT IS CONNECTED TO THE ELECTRICIAN REFINERY. BED AT THE LOWEST POSITION. SIDERAILS UP FOR SAFETY. CALL LIGHT IS WITHIN REACH.
--- NOTE | 2020-08-26 05:35 | NUR ---
DR MCCAULEY ON THE LINE
[2020-08-26] MEDS ORDERED: ONDANSETRON HCL/PF 4 MG/2 ML VIAL IVP PRN (06:00)
[2020-08-26] MEDS ORDERED: HYDROCODONE/APAP 5/325MG TABLET PO PRN (06:00)
[2020-08-26] MEDS ORDERED: MAG HYDROX/AL HYDROX/SIMETH 30 ML UDC PO PRN (06:00)
[2020-08-26] MEDS ORDERED: MAGNESIUM HYDROXIDE 30 ML UDC PO PRN (06:00)
[2020-08-26] MEDS ORDERED: ACETAMINOPHEN 325 MG TABLET PO PRN (06:00)
[2020-08-26] MEDS ORDERED: Z GUARD REMEDY 2 OZ OINT TP PRN (06:00)
[2020-08-26] MEDS ORDERED: ZOLPIDEM TARTRATE 5 MG TABLET PO PRN (06:00)
--- NOTE | 2020-08-26 07:08 | NUR ---
BED 118-1
--- NOTE | 2020-08-26 07:11 | NUR ---
REPORT GIVEN TO CESAR العلي FOR NALINI.
--- NOTE | 2020-08-26 07:38 | NUR ---
PATIENT TRANSFERRED TO FLOOR, IN STABLE CONDITION.
[2020-08-26 08:00] VITALS: BP 137/80
--- NOTE | 2020-08-26 08:00 | NUR ---
RN OPENING NOTES RECEIVED PT FROM ER. A/O X4. TOLERATING ROOM AIR, SPO2 @98%. NO SOB OR ANY ACUTE DISTRESS NOTED. NO PAIN REPORTED. SKIN IS INTACT. IV SITE ON R AC #20 INTACT, PATENT AND FLUSHED. REGULAR DIET. AM CARE RENDERED. CHANGED INTO HOSPITAL GOWN. BELONGING LIST SIGNED. SAFETY MEASURES IN PLACE. CALL LIGHT WITHIN REACH. BED LOCKED AND AT LOWEST POSITION WITH SIDE RAILS UP X2. BED ALARM ON. WILL CONTINUE TO MONITOR.
[2020-08-26] MEDS: DEXAMETHASONE SOD PHOSPHATE 10 MG/ML VIAL IV SCH (09:17)
[2020-08-26] MEDS: AMLODIPINE BESYLATE 2.5 MG TABLET PO SCH (09:17)
[2020-08-26] MEDS: ASPIRIN 81 MG TAB.CHEW PO SCH (09:17)
[2020-08-26 12:00] VITALS: BP 112/68
--- NOTE | 2020-08-26 14:44 | NUR ---
Copy Operator met with patient today to complete a psychosocial assessment. Reason for assessment is patient is homeless. Patient tested positive for COVID-19 and due to COVID-19 precautions patient is in isolation and this SW cannot meet with the patient at bedside. SW will coordinate with ZOHRA Cho to set up hospital telephone line, zoom call, or facetime. SW remains available for all needs regarding this patient.
--- NOTE | 2020-08-26 14:55 | NUR ---
Broom Man met with patient today to complete a psychosocial assessment. Reason for assessment is patient is homeless. Patient is a 75 year-old male. Patient reported that he has been homeless for approximately 6 weeks. Patient reported he has had difficulty breathing and a stranger called an ambulance. Patient reported to this SW that he is COVID positive. Patient reported that as of now he is happy he is here. Patient denied government assistance including General Relief, Food Sarles, and SSI/SSD. Patient denies mental health diagnosis. Patient denies psychiatric hospitalization. Patient denies the use of alcohol, drugs, and cigarettes. Patient denied suicidal and homicidal ideation. Patient denied auditory and visual hallucinations. SW and patient discussed the need of homeless patient resources and patient was receptive. Patient also requested application for General Relief, Food Sarles, and SSI. SW to place these resources in patient's chart. Patient was calm and cooperative. Patient able to make needs known. Patient reported having proper clothing and shoes. SW remains available for all needs regarding this patient.
--- NOTE | 2020-08-26 15:15 | NUR ---
SW placed the following resources in patient's chart. Hygiene: [employer]: [address] [place] ; [employer] [employer] [address] [facility] ; [facility] [address] [facility] . Food Resources: [place] [employer] [facility] at [facility]- [address] [place]; Meet Each Need with Dignity ([facility]) [address] [facility]; [facility] [address] [facility]; [facility] [address] [facility]. Mental Health resources provided: [facility] [address] [place], [place] [address] ; [facility] [place], [facility]. [address] [facility] [address], [place], [place] [phone] ; [facility] [address] [facility] [place], [place] [phone] ; [facility] [address] [place], [place] [phone] Healthcare Clinics: [facility] [address] [facility], [address] [place]. [place] ; [facility] [address] [facility] [address] [place] [address]; [facility] [address] [facility]. [place] [phone] Winter Shelters: [employer] [place] [facility] [address] [place] [place] [address] ; [employer] [place] [facility] [address] [place], [address] ; [facility] [place]* [facility] ; [employer] [place] [address] [address] ; [employer] [place] [facility] [address], [address] ; [facility] [address] [facility] [address] ; First To Serve* [facility] [address] [facility], [address] ; [facility] [address], [address] ; [facility] [address] [facility], [address] ; [facility] [address], [address] ; [facility] [address] [facility], [address] ; Home at Last [facility] [address], [phone] ; Home At Last [address] [place] [address] [address] [facility]Note 2[facility] , [phone] ; [employer] [place] * Library [address] [address] General Relief information: Basic Eligibility To be eligible for General Relief, you must be a resident of [facility] and meet all the following eligibility requirements:Your monthly net income is lower than the maximum shelly of $221. The monthly net income for a couple is $375;Your personal property has a combined value of $2,000 or less;Your motor vehicle is valued at $4,500 or less. If you are homeless and using the vehicle as a residence, the value is $11,500 or less. All other motor vehicles that you own and are not using a residence is valued at $4,500 or less. Only one motor vehicle may be retained.When applying for aid, your byrnes on hand or in a bank account is $100 or less, or if a couple/family is $200 or less. After you are approved for aid, your byrnes on hand or in a bank account is $1,500 or less.Your real property (residence) has an assessed value of $34,000 or less and you agree to sign a lien, allowing the [facility] to recover GR payments received under certain circumstances. You are ineligible to GR if you:Are in violation of probation or parole. Are fleeing to avoid prosecution or custody/confinement after a felony conviction. [facility] Benefits Entitlement Services Team (CBEST) Apply On-Line with Your Benefits Now The easiest and quickest way is to apply for General Relief online at Your Benefits Now. Apply at YOUR BENEFITS NOW Apply by Telephone for CalFresh and [employer] You can apply by phone. Call the [facility] ([facility]) to have an application mailed to [facility] ([facility]) Apply In Person You can apply In person at any [employer] Public [employer] (DPSS) District Office or outreach site. How to Apply By Fax or Mail You may print the appropriate forms on page two of the Application for General Relief Packet or you may request a packet from the Customer Services Center at: . Once you have completed the packet, you may submit it by faxing to: , or by mailing to: [employer] [address] [place] [address] ATTN: GR APPLICATION
[2020-08-26 16:00] VITALS: BP 112/61
--- NOTE | 2020-08-26 19:30 | NUR ---
RN OPENING NOTES: RECEIVED PT A/OX3 IN BED SLEEPING COMFORTABLY.PATIENT IN NO S/SX OF ACUTE DISTRESS AT THIS TIME. NO SOB NOTED. PATIENT'S BREATHING IS EVEN AND UNLABORED. PATIENT ON RA; SATING VERY WELL >95% O2 SAT. PATIENT ON TELE MONITORING READING SINUS RHYTHM HR IS @80s AT THE TIME OF RECEIVED. PATIENT ON REGULAR DIET; TOLERATES WELL. NOTED IV SITE ON R AC #20;PATENT, INTACT AND FLUSHING WELL; NO S/S OF INFECTION OR INFILTRATION. SAFETY MEASURES HAVE BEEN PROVIDED AND IMPLEMENTED. PATIENT BED ALARM IS ON. HEAD OF BED ELEVATED. BED IS LOCKED, IN LOWEST POSITION AND SIDE RAILS UP. CALL LIGHT WITHIN REACH OF THE PATIENT. APPLICABLE ISOLATION PRECAUTIONS IN PLACE. WILL CONTINUE TO MONITOR AND REASSESS FOR ANY CHANGES AND WILL CARRY OUT ANY ONGOING AND ACTIVE MD ORDER.
--- NOTE | 2020-08-26 19:40 | NUR ---
RN CLOSING NOTES PT COMFORTABLY RESTING IN BED. A/O X4. TOLERATING ROOM AIR, SPO2 @98%. NO SOB OR ANY ACUTE DISTRESS NOTED. NO PAIN REPORTED. SKIN IS INTACT. IV SITE ON R AC #20 INTACT, PATENT AND FLUSHED. REGULAR DIET. SAFETY MEASURES IN PLACE. CALL LIGHT WITHIN REACH. BED LOCKED AND AT LOWEST POSITION WITH SIDE RAILS UP X2. BED ALARM ON. WILL ENDORSE TO NIGHT NURSE FOR NALINI.
[2020-08-26 20:00] VITALS: BP 113/73
--- NOTE | 2020-08-26 23:00 | NUR ---
RN NOTES PATIENT REMAINS IN NO ACUTE RESPIRATORY DISTRESS AT THIS TIME, NO CHANGES TO CONDITION/STATUS. ANGLE SHEAR SET UP OPERATOR WELL AWARE. WILL CONTINUE TO MONITOR AND REASSESS FOR ANY CHANGES THROUGHOUT THE SHIFT
[2020-08-27] VITALS: BP 112/72
--- NOTE | 2020-08-27 03:00 | NUR ---
RN NOTES NO CHANGE IN PATIENT CONDITION AT THIS TIME PATIENT VITALS STABLE, NO SIGNS OF ACUTE RESPIRATORY DISTRESS. TINWARE LITHOGRAPH PRESS OPERATOR MADE AWARE. WILL CONTINUE TO MONITOR AND REASSESS FOR ANY CHANGES THROUGHOUT THE SHIFT.
[2020-08-27 04:00] VITALS: BP 125/74
--- NOTE | 2020-08-27 06:58 | NUR ---
RN CLOSING NOTE: PATIENT REMAINS IN ROOM IN NO SIGNS OF RESPIRATORY DISTRESS. SAFETY MEASURES IMPLEMENTED, BED IN LOWEST POSITION, LOCKED, SIDE RAILS UP, CALL LIGHT WITHIN REACH. ALL NEEDS AND ORDERS ADDRESSED DURING THE SHIFT. IV ACCESS MAINTAINED INTACT, SECURED AND FLUSHING WELL. ALL DUE MEDS GIVEN ORDERED & SCHEDULED ; PATIENT TOLERATED WELL. PATIENT KEPT CLEAN AND COMFORTABLE WITHIN THE SHIFT. PATIENT ENDORSED TO INCOMING SHIFT RN WITH STABLE VITAL SIGN AND FOR CONTINUITY OF CARE.
[2020-08-27 07:10] LABS: BASOPHILS % (AUTO) 0.1 % (0.0-2.0); HEMATOCRIT 28 % (39-51); HEMOGLOBIN 9.1 g/dL (13.5-17.5); LYMPHOCYTES # (AUTO) 0.4 /CMM (0.8-4.8); LYMPHOCYTES % (AUTO) 3.3 % (20.0-44.0); MEAN CORPUSCULAR HGB CONC 33 g/dl (31.0-36.0); MEAN CORPUSCULAR VOLUME 89 fL (80-96); MONOCYTES # (AUTO) 0.6 /CMM (0.1-1.30); MONOCYTES % (AUTO) 4.2 % (2.0-12.0); NEUTROPHILS # (AUTO) 12.3 /CMM (1.8-8.9); NEUTROPHILS % (AUTO) 92.4 % (43.0-81.0); PLATELET COUNT (AUTO) 259 /CMM (150-450); RED BLOOD CELL COUNT(AUTO) 3.12 MIL/uL (4.5-6.0); WHITE BLOOD COUNT (AUTO) 13.3 K/uL (4.3-11.0)
--- NOTE | 2020-08-27 07:30 | NUR ---
RN OPENING NOTES: RECEIVED PT A/OX3 IN BED SLEEPING COMFORTABLY.PATIENT IN NO S/SX OF ACUTE DISTRESS AT THIS TIME. NO SOB NOTED. PATIENT'S BREATHING IS EVEN AND UNLABORED. PATIENT ON RA; SATING VERY WELL >95% O2 SAT. PATIENT ON TELE MONITORING READING SINUS RHYTHM HR IS @80s AT THE TIME OF RECEIVED. PATIENT ON REGULAR DIET; TOLERATES WELL. NOTED IV SITE ON R AC #20;PATENT, INTACT AND FLUSHING WELL; NO S/S OF INFECTION OR INFILTRATION. SAFETY MEASURES HAVE BEEN PROVIDED AND IMPLEMENTED. PATIENT BED ALARM IS ON. HEAD OF BED ELEVATED. BED IS LOCKED, IN LOWEST POSITION AND SIDE RAILS UP. CALL LIGHT WITHIN REACH OF THE PATIENT. APPLICABLE ISOLATION PRECAUTIONS IN PLACE. WILL CONTINUE TO MONITOR AND PROVIDE TREATMENT
[2020-08-27 07:46] LABS: ALBUMIN 2.1 g/dL (3.4-5.0); ALKALINE PHOSPHATASE 74 U/L (46-116); ASPARTATE AMINOTRANSFERASE 18 U/L (15-37); BILIRUBIN,TOTAL 0.5 mg/dL (0.2-1.0); CALCIUM, SERUM 7.4 mg/dL (8.5-10.1); CARBON DIOXIDE 23 mmol/L (21-32); CHLORIDE 104 mmol/L (98-107); CREATININE 1.7 mg/dL (0.6-1.3); GLUCOSE 86 mg/dL (74-106); PHOSPHORUS 2.8 mg/dL (2.5-4.9); POTASSIUM 4.1 mmol/L (3.5-5.1); SODIUM SERUM 137 mmol/L (136-145); TOTAL PROTEIN, SERUM 6.2 g/dL (6.4-8.2); UREA NITROGEN, BLOOD 25 mg/dL (7-18)
[2020-08-27 07:49] LABS: MAGNESIUM 1.2 mg/dL (1.8-2.4)
[2020-08-27 07:51] LABS: CHOLESTEROL 97 mg/dL (<200); CREATINE KINASE, TOTAL 86 U/L (39-308); HDL CHOLESTEROL 55 mg/dL (40-60); LDL 38 mg/dL (0-99); TRIGLYCERIDES 48 mg/dL (30-150)
[2020-08-27 07:58] LABS: ALANINE AMINOTRANSFERASE 10 U/L (12-78)
[2020-08-27 08:00] VITALS: BP 129/79
[2020-08-27] MEDS: ASPIRIN 81 MG TAB.CHEW PO SCH (09:24)
[2020-08-27] MEDS: AMLODIPINE BESYLATE 2.5 MG TABLET PO SCH (09:24)
[2020-08-27] MEDS: DEXAMETHASONE SOD PHOSPHATE 10 MG/ML VIAL IV SCH (09:24)
[2020-08-27] MEDS: ENSURE ENLIVE CHOC 237 ML CAN PO SCH ×3 (09:25→16:24)
[2020-08-27] MEDS: Magnesium 1GM/D5W 100ML PREMIX 100 ML IV SCH ×3 (11:00→13:05)
[2020-08-27 12:00] VITALS: BP 121/71
[2020-08-27 16:00] VITALS: BP 127/75
--- NOTE | 2020-08-27 18:46 | NUR ---
RN CLOSING NOTES: PT A/OX3 IN BED SLEEPING COMFORTABLY.PATIENT IN NO S/SX OF ACUTE DISTRESS AT THIS TIME. NO SOB NOTED. PATIENT'S BREATHING IS EVEN AND UNLABORED. PATIENT ON RA; SATING VERY WELL >95% O2 SAT. PATIENT ON REGULAR DIET; TOLERATES WELL. NOTED IV SITE ON R AC #20;PATENT, INTACT AND FLUSHING WELL; NO S/S OF INFECTION OR INFILTRATION. SAFETY MEASURES HAVE BEEN PROVIDED AND IMPLEMENTED. PATIENT BED ALARM IS ON. HEAD OF BED ELEVATED. BED IS LOCKED, IN LOWEST POSITION AND SIDE RAILS UP. CALL LIGHT WITHIN REACH OF THE PATIENT. APPLICABLE ISOLATION PRECAUTIONS IN PLACE. WILL ENDORSE TO DISTRIBUTION OPERATIONS MANAGER NURSE FOR NALINI.
--- NOTE | 2020-08-27 19:40 | NUR ---
RN NOTES RECEIVED PT IN BED, SLEEPING, EASILY AROUSABLE BY VERBAL STIMULI. ALERT AND ORIENTED X3. VERBALLY RESPONSIVE. NO RESP DISTRESS NOTED. PT DENIES ANY CHEST PAIN. WITH RAC IV G 20. PATENT AND INTACT. WILL CONTINUE TO MONITOR. ALL SAFETY MEASURES IMPLEMENTED PER PROTOCOL. CALL LIGHT WITHIN REACH. BED LOCKED IN LOWEST POSITION. SIDE RAILS UP X 2. BED ALARM ON.
[2020-08-27 20:00] VITALS: BP 116/70
--- NOTE | 2020-08-27 20:44 | NUR ---
RN NOTE RECEIVED CALL FROM LAB. PT BLOOD CULTURE GRAM + JOSSELINE FOR PRELIMINARY. PAGED DR MCCAULEY. AWAITING FOR CALL BACK.
--- NOTE | 2020-08-27 21:05 | NUR ---
RN NOTES RECEIVED CALL BACK FROM DR MCCAULEY, NOTIFIED ABOUT THE RESULTS OF BLOOD CULTURE. ALSO NOTIFIED THAT PT NOT ON ANY ATB. ORDERED URINE CULTURE. ORDER NOTED AND CARRIED OUT.
[2020-08-28 04:00] VITALS: BP 124/78
--- NOTE | 2020-08-28 06:15 | NUR ---
RN NOTE COLLECTED URINE SPECIMEN. CALLED LAB FOR TRANSPLANT NURSE PRACTITIONER.
--- NOTE | 2020-08-28 07:00 | NUR ---
RN CLOSING NOTES PT REMAINS IN BED. ABLE TO MAKE NEEDS KNOWN. NO COMPLAIN OF CHEST PAIN ALL SHIFT. DENIES ANY SOB. REMAIN AFEBRILE. TOLERATING ROOM AIR WITH O2SAT AT 98 %. IV REMAIN INTACT AND PATENT. CALL LIGHT WITHIN REACH AT ALL TIMES. ISOLATION PRECAUTION MAINTAINED. BED LOCKED IN LOWEST POSITION.
[2020-08-28] MEDS: ENSURE ENLIVE CHOC 237 ML CAN PO SCH ×3 (08:00→17:24)
--- NOTE | 2020-08-28 08:00 | NUR ---
RN Opening note Received patient in bed, awaken able to responds all stimuli, Pt does no c/o pain or distress. Skin is warm to touch keep clean/dry intact IV site, respiratory even and unlabored on room air, O2sat 98%. Kept locked bed with elevated HOB for aspiration precaution and ensure airway and lowest bed foe safety. Call light within reach, will continue to monitor.
[2020-08-28 08:06] LABS: PTH, INTACT 88 pg/mL (15-65)
[2020-08-28] MEDS: AMLODIPINE BESYLATE 2.5 MG TABLET PO SCH (09:00)
[2020-08-28] MEDS: ASPIRIN 81 MG TAB.CHEW PO SCH (10:02)
[2020-08-28] MEDS: DEXAMETHASONE SOD PHOSPHATE 10 MG/ML VIAL IV SCH (10:02)
[2020-08-28 12:00] VITALS: BP 119/64
--- NOTE | 2020-08-28 15:45 | NUR ---
Patient discharge to [facility], given report Bob/CHELSEY.
--- NOTE | 2020-08-28 16:30 | NUR ---
2EMTs picked up patient to the [facility] but patient refused to discharge last minute. DM and CM made aware, patient d/c tomorrow morning.
--- NOTE | 2020-08-28 18:54 | NUR ---
RN closing Patient in bed resting, does no appears distress or discomfort. Skin is warm to touch, keep clean/dry. Respiratory even and unlabored on room air O2sat 98%. Kept elevated HOB for ensure air way and aspiration precaution and lowest bed for safety. Call light within reach, will endorse maintenance supervisor 2nd shift
--- NOTE | 2020-08-28 19:30 | NUR ---
RN OPENING NOTES: RECEIVED PT A/OX3 IN BED RESTING COMFORTABLY. PATIENT IN NO S/SX OF ACUTE DISTRESS AT THIS TIME. NO SOB NOTED. PATIENT'S BREATHING IS EVEN AND UNLABORED. PATIENT ON RA; SATING VERY WELL @97% O2 SAT. PATIENT ON TELE MONITORING READING SINUS RHYTHM HR IS @99 AT THE TIME OF RECEIVED. PATIENT ON REGULAR DIET; TOLERATES WELL. NO IV SITE/ACCESS NOTED DURING THE TIME OF RECEIVED. SAFETY MEASURES HAVE BEEN PROVIDED AND IMPLEMENTED. PATIENT BED ALARM IS ON. HEAD OF BED ELEVATED. BED IS LOCKED, IN LOWEST POSITION AND SIDE RAILS UP. CALL LIGHT WITHIN REACH OF THE PATIENT. APPLICABLE ISOLATION PRECAUTIONS IN PLACE. WILL CONTINUE TO MONITOR AND REASSESS FOR ANY CHANGES AND WILL CARRY OUT ANY ONGOING AND ACTIVE MD ORDER.
[2020-08-28 20:00] VITALS: BP 154/84
--- NOTE | 2020-08-28 21:00 | NUR ---
RN NOTES FACILITATED INSERTION OF IV LINE/ACCESS @ [id number]. PAID INTERN MADE AWARE. WILL CONTINUE TO MONITOR AND ASSESS
[2020-08-28] MEDS: MUPIROCIN OINT 2% 22 GM TUBE NS SCH (21:08)
--- NOTE | 2020-08-28 23:00 | NUR ---
RN NOTES PATIENT REMAINS IN NO ACUTE RESPIRATORY DISTRESS AT THIS TIME, NO CHANGES TO CONDITION/STATUS. AUTOMATIC SPINNING LATHE SETTER WELL AWARE. WILL CONTINUE TO MONITOR AND REASSESS FOR ANY CHANGES THROUGHOUT THE SHIFT
--- NOTE | 2020-08-29 03:00 | NUR ---
RN NOTES NO CHANGES IN PATIENT CONDITION AT THIS TIME PATIENT VITALS STABLE, NO SIGNS OF ACUTE RESPIRATORY DISTRESS. PATIENT STILL IN BED SLEEPING COMFORTABLY. NO COMPLAINTS OF PAIN OR ANY DISCOMFORT AT THIS TIME. WILL CONTINUE TO MONITOR AND REASSESS FOR ANY CHANGES THROUGHOUT THE SHIFT.
[2020-08-29 04:00] VITALS: BP 156/90
--- NOTE | 2020-08-29 06:53 | NUR ---
RN CLOSING NOTE: PATIENT REMAINS IN ROOM IN NO SIGNS OF RESPIRATORY DISTRESS. 02 SAT REMAINS >95% UNDER ROOM AIR AND OTHER VITALS WNL. SAFETY MEASURES IMPLEMENTED, BED IN LOWEST POSITION, LOCKED, SIDE RAILS UP, CALL LIGHT WITHIN REACH. ALL NEEDS AND ORDERS ADDRESSED DURING THE SHIFT. IV ACCESS MAINTAINED INTACT, SECURED AND FLUSHING WELL. ALL DUE MEDS GIVEN ORDERED & SCHEDULED ; PATIENT TOLERATED WELL. PATIENT KEPT CLEAN AND COMFORTABLE WITHIN THE SHIFT. PATIENT ENDORSED TO INCOMING SHIFT RN WITH STABLE VITAL SIGN AND FOR CONTINUITY OF CARE.
[2020-08-29 08:00] VITALS: BP 152/84
--- NOTE | 2020-08-29 08:00 | NUR ---
MS RN NOTE PATIENT REMAINS IN BED , ALERT ,ORIENTED IN NO SIGNS OF RESPIRATORY DISTRESS. 02 SAT REMAINS 96% AT THIS TIME SAFETY MEASURES IMPLEMENTED, BED IN LOWEST POSITION, LOCKED, SIDE RAILS UP, CALL LIGHT WITHIN REACH. ALL NEEDS ATTENDED, IV ACCESS MAINTAINED INTACT, SECURED AND FLUSHING WELL. . PATIENT KEPT CLEAN AND COMFORTABLE , DR SUSANNE ZARAGOZA AT BEDSIDE OK TO DISCHARGE TODAY
[2020-08-29] MEDS: DEXAMETHASONE SOD PHOSPHATE 10 MG/ML VIAL IV SCH (08:49)
[2020-08-29] MEDS: ASPIRIN 81 MG TAB.CHEW PO SCH (08:49)
[2020-08-29 08:50] VITALS: BP 152/84
[2020-08-29] MEDS: MUPIROCIN OINT 2% 22 GM TUBE NS SCH (08:50)
[2020-08-29] MEDS: AMLODIPINE BESYLATE 2.5 MG TABLET PO SCH (08:50)
[2020-08-29] MEDS: ENSURE ENLIVE CHOC 237 ML CAN PO SCH (08:51)
--- NOTE | 2020-08-29 10:27 | NUR ---
MS RN NOTE AMBULANCE ARRIVED ,REPORT GIVEN CHARGE NURSE SOON CALLED FACILTY SPOKE WITH NURSE , AWAITING PATIENT
--- NOTE | 2020-08-29 11:29 | NUR ---
MS RN NOTE AMBULANCE AT BEDSIDE HL REMOVED , DRY DRESSING APPLIED, STATED THAT HAS FLORY AND NEGAR CHECKED BELONGING LIST IT AND ITS NOT LISTED CHARGE NURSE SOON NOTIFIED WILL INFORM NURSING SURVEYOR MINE Addendum: 08/29/20 at 1133 by CINDY CRAFT RN TAKEN BY AMBULANCE TO SNF WITH STABLE CONDITION ,
--- NOTE | 2020-08-29 12:00 | NUR ---
MS RN NOTE T MS RN PADMAJA CALLED NURSING LPN RN HOSPICE SPOKE WITH CARLENE ABOUT PATIENT BELONGING , PATIENT STATED THAT HAVE KEYS AND WALLET , BUT CHECKED LOCKER ,NOT AVAILABLE , RECHECK AGAIN BELONGING LIST, NOT LISTED
[2020-08-30 11:07] LABS: *SPE A/G RATIO 0.6 (0.7-1.7); *SPE ALBUMIN 2.1 g/dL (2.9-4.4); *SPE ALPHA-1-GLOBULIN 0.4 g/dL (0.0-0.4); *SPE ALPHA-2-GLOBULIN 0.7 g/dL (0.4-1.0); *SPE GLOBULIN, TOTAL 3.3 g/dL (2.2-3.9); *SPE M-SPIKE Not Observed g/dL (Not Observed); *SPEGAMMA GLOBULIN 1.1 g/dL (0.4-1.8)
== END 2020-08-29 11:30 | DRG 177 ==
LOC: ER 01:02 → EDBD 01:02 → TRANSITION 06:01 → TELE1 07:18 → MEDSG1 08-27 09:03
PROVIDERS: ADMIT Nurse Practitioner Acute Care; ATTEND Nurse Practitioner Acute Care
DX: U07.1 COVID-19 (principal); E43 Unspecified severe protein-calorie malnutrition; J12.82 Pneumonia due to coronavirus disease 2019; I13.0 Hypertensive heart and chronic kidney disease with heart failure and stage 1 through stage 4 chronic kidney disease, or unspecified chronic kidney disease; N17.9 Acute kidney failure, unspecified; C90.00 Multiple myeloma not having achieved remission; I50.32 Chronic diastolic (congestive) heart failure; R64 Cachexia; I25.10 Atherosclerotic heart disease of native coronary artery without angina pectoris; N18.9 Chronic kidney disease, unspecified; M54.9 Dorsalgia, unspecified; Z79.82 Long term (current) use of aspirin; Z79.899 Other long term (current) drug therapy; D63.8 Anemia in other chronic diseases classified elsewhere; D63.1 Anemia in chronic kidney disease; E83.51 Hypocalcemia; I25.2 Old myocardial infarction; Z59.0 Homelessness
CPT/HCPCS: 36415; 71045-TC; 80048-TC; 80053-TC; 80061-TC; 80076-TC; 82550-TC; 83735-TC; 83880; 83970; 84100-TC; 84155; 84165; 84484-TC; 85025-TC; 85730-TC; 87040-TC; 87081-TC; 87086-TC; C9803; G0378; J1100; J2405; J3475; J7050; U0003